=== PATIENT | female | born 1945 | race Caucasian/White ===

== ENCOUNTER 2017-06-14 09:27 | Inpatient (IN) | payer OTHER ==
[2017-06-14] MEDS ORDERED: NS 1/2 1000 ML IV 1,000 ML IV ONE ×2 (11:05→21:06)
[2017-06-14] MEDS ORDERED: ZOSYN VIAL 4.5 GM IV ONE (12:25)
[2017-06-14] MEDS ORDERED: NS 250 ML IV 250 ML IV ONE (12:25)
[2017-06-14] MEDS ORDERED: NS 100 ML IV + SPIKE MINIBAG* 100 ML IV ONE (12:26)
[2017-06-14] MEDS ORDERED: TUSSIONEX PENNKINETIC SUSP PO PRN (13:26)
[2017-06-14 13:54] LABS: ALANINE AMINOTRANSFERASE 55 Units/L (12-78); ALBUMIN 3.1 g/dL (3.4-5.0); ALKALINE PHOSPHATASE 113 Units/L (46-116); ASPARTATE AMINO TRANSFERASE 64 Units/L (15-37); BLOOD UREA NITROGEN 41 mg/dL (7-18); CARBON DIOXIDE 25.4 mmol/L (21-32); CHLORIDE 99 mmol/L (98-107); COR CA(FOR HYPOALB) 8.7 mg/dL (8.5-10.1); CREATININE 2.73 mg/dL (0.55-1.02); GLUCOSE 87 mg/dL (65-99); SODIUM 134 mmol/L (136-145); TOTAL PROTEIN 6.2 g/dL (6.4-8.2); eGFR BLACK RACES 22 (>60); eGFR NON BLACK RACES 18 (>60)
[2017-06-14 13:57] LABS: BASOPHILS % (AUTO) 0.3 % (0.2-1.0); EOSINOPHILS % (AUTO) 0.2 % (0.9-2.9); HEMATOCRIT 32.5 % (36.0-47.0); HEMOGLOBIN 11.3 g/dL (12.0-16.0); LYMPHOCYTES # (AUTO) 0.1 X10^3/uL (1.3-2.9); LYMPHOCYTES % (AUTO) 5.7 % (21.0-51.0); MEAN CORPUSCULAR HEMOGLOBIN 31.6 pg (27.0-34.0); MEAN CORPUSCULAR HGB CONC 34.8 g/dL (33.0-35.0); MEAN CORPUSCULAR VOLUME 90.8 fL (80.0-100.0); MEAN PLATELET VOLUME 10.2 fL (7.4-11.0); MONOCYTES # (AUTO) 0.1 x10^3/uL (0.3-0.8); MONOCYTES % (AUTO) 3.9 % (0.0-13.0); NEUTROPHILS # (AUTO) 1.7 x10^3/uL (2.2-4.8); NEUTROPHILS % (AUTO) 89.9 % (42.0-75.0); PLATELET COUNT 91 X10^3/uL (150.0-450.0); RED BLOOD COUNT 3.57 X10^6/uL (3.5-5.4)
[2017-06-14 13:58] LABS: WHITE BLOOD COUNT 1.9 X10^3/uL (3.6-10.0)
[2017-06-14] MEDS ORDERED: POTASSIUM CHLORIDE LIQ 20 MEQ UDC PO PRN (13:58)
[2017-06-14] MEDS ORDERED: K-LYTE EFFERVESCENT PO PRN (13:58)
[2017-06-14] MEDS ORDERED: K-DUR TAB 20 MEQ PO PRN (13:58)
[2017-06-14] MEDS ORDERED: K-RIDER 10 MEQ/NS 100 ML 10 MEQ/100 ML BAG IV PRN (13:58)
[2017-06-14 13:59] LABS: BAND NEUTROPHILS % 4 % (0-10)
[2017-06-14 14:00] LABS: PLATELET MORPHOLOGY COMMENT NORMAL (NORMAL)
--- NOTE | 2017-06-14 15:35 | RAD ---
HISTORY: Cough, shortness of breath Study: Chest AP portable Comparison: May 19, 2015 Findings: The trachea is midline. The cardiac silhouette is unremarkable. The lungs are clear without focal i nfiltrate or effusion. The bony thorax is unremarkable. IMPRESSION: 1. No acute cardiopulmonary disease. Reported By:
[2017-06-14] MEDS: ROBITUSSIN DM PO SCH ×3 (16:05→21:12)
[2017-06-14] MEDS: NS 1/2 1000 ML IV 1,000 ML IV SCH (16:05)
[2017-06-14] MEDS: ZOSYN VIAL 4.5 GM 4.5 GM in NS 100 ML IV + SPIKE MINIBAG* 100 ML IV SCH ×2 (16:05→21:11)
[2017-06-14] MEDS ORDERED: TYLENOL 325 MG TAB PO PRN (16:53)
[2017-06-14 17:10] LABS: CRYPTOSPORIDIUM PARVUM ANTIGEN NEGATIVE (NEGATIVE); GIARDIA LAMBLIA ANTIGEN NEGATIVE (NEGATIVE)
[2017-06-14] MEDS: DUONEB 0.5 MG/3 MG NEB SCH ×2 (17:46→21:00)
--- NOTE | 2017-06-14 20:18 | DR.UPDATE ---
H&P Update History and Physical Update: WAS SEEN IN OUR OFFICE THIS MORNING. A H&P WAS COMPLETED PRIOR TO ADMISSION. PATIENT HAS BEEN SEEN AND EXAMINED WITH NO CHANGES NOTED. Changes noted: NO Yes with the following:
[2017-06-15] MEDS: DUONEB 0.5 MG/3 MG NEB SCH ×7 (01:30→20:57)
[2017-06-15] MEDS: ZOSYN VIAL 4.5 GM 4.5 GM in NS 100 ML IV + SPIKE MINIBAG* 100 ML IV SCH (05:33)
[2017-06-15] MEDS: NS 1/2 1000 ML IV 1,000 ML IV SCH ×3 (06:17→17:40)
[2017-06-15 06:26] LABS: BASOPHILS % (AUTO) 0.4 % (0.2-1.0); HEMATOCRIT 29.8 % (36.0-47.0); HEMOGLOBIN 10.6 g/dL (12.0-16.0); LYMPHOCYTES # (AUTO) 0.3 X10^3/uL (1.3-2.9); MEAN CORPUSCULAR HEMOGLOBIN 32.2 pg (27.0-34.0); MEAN CORPUSCULAR HGB CONC 35.8 g/dL (33.0-35.0); MEAN CORPUSCULAR VOLUME 90.1 fL (80.0-100.0); MEAN PLATELET VOLUME 10.5 fL (7.4-11.0); MONOCYTES # (AUTO) 0.1 x10^3/uL (0.3-0.8); MONOCYTES % (AUTO) 6.8 % (0.0-13.0); NEUTROPHILS % (AUTO) 71.8 % (42.0-75.0); PLATELET COUNT 75 X10^3/uL (150.0-450.0); RED CELL DISTRIBUTION WIDTH 12.2 % (11.6-16.5)
[2017-06-15 06:33] LABS: ALANINE AMINOTRANSFERASE 46 Units/L (12-78); ALBUMIN 2.9 g/dL (3.4-5.0); ALKALINE PHOSPHATASE 104 Units/L (46-116); ASPARTATE AMINO TRANSFERASE 50 Units/L (15-37); BLOOD UREA NITROGEN 30 mg/dL (7-18); CALCIUM 8.1 mg/dL (8.5-10.1); CARBON DIOXIDE 25.2 mmol/L (21-32); CHLORIDE 105 mmol/L (98-107); GLUCOSE 89 mg/dL (65-99); SODIUM 139 mmol/L (136-145); TOTAL PROTEIN 5.8 g/dL (6.4-8.2); eGFR BLACK RACES 32 (>60); eGFR NON BLACK RACES 26 (>60)
[2017-06-15 06:34] LABS: WHITE BLOOD COUNT 1.3 X10^3/uL (3.6-10.0)
[2017-06-15 06:40] LABS: BAND NEUTROPHILS % 4 % (0-10); PLATELET MORPHOLOGY COMMENT NORMAL (NORMAL)
--- NOTE | 2017-06-15 07:22 | RAD ---
AP Chest Indication: Shortness of breath Comparison: 06/14/2017 Findings: The trachea is midline. The cardiac silhouette is unremarkable. The lungs are clear without focal i nfiltrate or effusion. The bony thorax is unremarkable. IMPRESSION: 1. No acute cardiopulmonary abnormality. Reported By:
[2017-06-15] MEDS: ZOFRAN INJ 4 MG VIAL IVP PRN ×2 (08:22→15:53)
[2017-06-15] MEDS: ROBITUSSIN DM PO SCH ×4 (08:22→20:50)
[2017-06-15] MEDS: ZOSYN VIAL 2.25 GM 2.25 GM in NS 100 ML IV + SPIKE MINIBAG* 100 ML IV SCH ×3 (08:23→20:50)
[2017-06-15] MEDS ORDERED: PHARMACY CONSULT - DOSE _____ XX SCH (11:00)
[2017-06-15] MEDS: LEVAQUIN PREMIX IV 750 MG 750 MG/150 ML BAG IV SCH (11:35)
[2017-06-15] MEDS: HEMOCYTE-PLUS PO SCH (11:35)
--- NOTE | 2017-06-15 13:28 | PCM.PROG ---
Progress Note - Progress Note for Day of Date: 06/15/17 - Subjective Subjective: IS ALERT AND ORIENTED, SITTING UP IN BED ON MORNING ROUNDS. SHE IS NOTED WITH COMPLAINTS OF SHORTNESS OF BREATH AND PRODUCTIVE COUGH. LUNGS ARE NOTED WITH SCATTERED WHEEZING AND RHONCHI ON AUSCULTATION. VITALS THIS AM ARE 98.0-84-17-98%-107/51. CBC WNL EXCEPT WBC CRITICAL LOW OF 1.3, RBC 3.30, HGB 10.6, HCT 29.8. CMP WNL EXCEPT BUN 30, CREATININE 2.00, CALCIUM 8.1, AST 50 , TOTAL PROTEIN 5.8, ALBUMIN 2.9. STOOL STUDIES ARE NEGATIVE. BLOOD CULTURES PENDING. PRELIMINARY SPUTUM CULTURE REPORTS GROWTH OF GRAM NEGATIVE RODS WITH NORMAL RICKY A DAY 1. GRAM STAIN REPORTS MANY GRAM POSITIVE COCCI. CHEST XRAY REPORT LUNGS CLEAR. WE WILL START LEVAQUIN 750MG IV Q48H AND CONTINUE ZOSYN. WE WILL RECHECK LABS AND XRAY, CHECK A PERIPHERAL BLOOD SMEAR, AND FOLLOW UP WITH PATIENT IN AM. - Past Medical Family Social History Past Med/Fam/Surg Hx: No changes since H&P Allergies: Allergies sulfamethoxazole [From Bactrim] Allergy (Verified 06/14/17 09:59) trimethoprim [From Bactrim] Allergy (Verified 06/14/17 09:59) - Review of Systems ROS: No change since H&P - Vital Signs and I&O's Vital Signs: Temperature 98.4 F Pulse Rate [Left Brachial] 82 Pulse Rate 68 Respiratory Rate 20 Blood Pressure [Right Arm] 133/64 Blood Pressure [Left Arm] 103/52 Blood Pressure 133/64 O2 Sat by Pulse Oximetry 99 Intake and Output: Intake & Output 06/13/17 06/14/17 06/15/17 06/16/17 11:59 11:59 11:59 11:59 Intake Total 2446 Balance 2446 - Physical Exam Oriented: Normal Eyes: Normal Ear: Normal Nose: Normal Throat: Normal Respiratory: Right, Left, Wheezes, Rhonchi Cardiovascular: Normal : Normal Auscultation: Bowel Sounds: Normal Palpation: Normal Tenderness: Normal Skin: Normal Musculoskeletal: Normal Psychiatric: Normal Mood Description: Calm Affect: Normal Speech Pattern: Clear, Appropriate - Laboratory and Diagnostics Result Diagrams: 06/15/17 05:33 06/15/17 05:33 Labs: 06/14/17 11:39 Blood Blood Culture - Preliminary 06/14/17 16:05 Stool Stool Culture - Preliminary 06/14/17 16:05 Stool - Final 06/14/17 11:33 Sputum - Expectorated Sputum Sputum Culture - Preliminary 06/14/17 11:33 Sputum - Expectorated Sputum - Final Laboratory WBC 1.3 X10^3/uL (3.6-10.0) L* 06/15/17 05:33 RBC 3.30 X10^6/uL (3.5-5.4) L 06/15/17 05:33 Hgb 10.6 g/dL (12.0-16.0) L 06/15/17 05:33 Hct 29.8 % (36.0-47.0) L 06/15/17 05:33 MCV 90.1 fL (80.0-100.0) 06/15/17 05:33 MCH 32.2 pg (27.0-34.0) 06/15/17 05:33 MCHC 35.8 g/dL (33.0-35.0) H 06/15/17 05:33 RDW 12.2 % (11.6-16.5) 06/15/17 05:33 Plt Count 75 X10^3/uL (150.0-450.0) L 06/15/17 05:33 Plt Count Comment Adequate (ADEQUATE) 06/15/17 05:33 MPV 10.5 fL (7.4-11.0) 06/15/17 05:33 Neut % 71.8 % (42.0-75.0) 06/15/17 05:33 Lymph % 20.0 % (21.0-51.0) L 06/15/17 05:33 [place] % 6.8 % (0.0-13.0) 06/15/17 05:33 Eos % 1.0 % (0.9-2.9) 06/15/17 05:33 Baso % 0.4 % (0.2-1.0) 06/15/17 05:33 Neut # 1.0 x10^3/uL (2.2-4.8) L 06/15/17 05:33 Lymph # 0.3 X10^3/uL (1.3-2.9) L 06/15/17 05:33 [place] # 0.1 x10^3/uL (0.3-0.8) L 06/15/17 05:33 Eos # 0.0 x10^3/uL (0.0-0.2) 06/15/17 05:33 Baso # 0.0 X10^3/uL (0.0-0.1) 06/15/17 05:33 Absolute Nucleated RBC 0.3 /100WBC 06/15/17 05:33 Total Counted 50 06/15/17 05:33 Neutrophils % (Manual) 76 % (39-76) 06/15/17 05:33 Band Neutrophils % 4 % (0-10) 06/15/17 05:33 Lymphocytes % (Manual) 16 % (13-43) 06/15/17 05:33 Monocytes % (Manual) 4 % (4-9) 06/15/17 05:33 Plt Morphology Comment Normal (NORMAL) 06/15/17 05:33 RBC Morphology Normal (NORMAL) 06/15/17 05:33 Sodium 139 mmol/L (136-145) 06/15/17 05:33 Corrected Sodium TNP 06/15/17 05:33 Potassium 4.0 mmol/L (3.5-5.1) 06/15/17 05:33 Chloride 105 mmol/L (98-107) 06/15/17 05:33 Carbon Dioxide 25.2 mmol/L (21-32) 06/15/17 05:33 BUN 30 mg/dL (7-18) H 06/15/17 05:33 Creatinine 2.00 mg/dL (0.55-1.02) H 06/15/17 05:33 Est GFR (MDRD) Af Amer 32 (>60) L 06/15/17 05:33 Est GFR (MDRD) Non-Af 26 (>60) L 06/15/17 05:33 Glucose 89 mg/dL (65-99) 06/15/17 05:33 Calcium 8.1 mg/dL (8.5-10.1) L 06/15/17 05:33 Corrected Calcium 9.0 mg/dL (8.5-10.1) 06/15/17 05:33 Total Bilirubin 0.90 mg/dL (0.2-1.0) 06/15/17 05:33 AST 50 Units/L (15-37) H 06/15/17 05:33 ALT 46 Units/L (12-78) 06/15/17 05:33 Alkaline Phosphatase 104 Units/L (46-116) 06/15/17 05:33 Total Protein 5.8 g/dL (6.4-8.2) L 06/15/17 05:33 Albumin 2.9 g/dL (3.4-5.0) L 06/15/17 05:33 Globulin 2.9 g/dL (2.5-4.5) 06/15/17 05:33 Albumin/Globulin Ratio 1.0 Ratio (1.1-2.1) L 06/15/17 05:33 Stool Description 15 g liquid/brown 06/14/17 16:05 Stl Occult Blood (IFOB) Negative (NEGATIVE) 06/14/17 16:05 Stool for White Cells No wbc's seen (None) 06/14/17 16:05 Stl C. diff Tox B Gene Negative (NEGATIVE) 06/14/17 16:05 Stl C. diff [id number] Negative (NEGATIVE) 06/14/17 16:05 Cryptosporid parvum Ag Negative (NEGATIVE) 06/14/17 16:05 E. histolytica Antigen Negative (NEGATIVE) 06/14/17 16:05 Giardia lamblia Ag Negative (NEGATIVE) 06/14/17 16:05 - Plan (1) Bronchopneumonia Status: Acute Plan: PNEUMONIA PROTOCOL, ZOSYN IV, LEVAQUIN IV, DUONEBS Q4H, CONTINUE TO MONITOR (2) Anemia Status: Acute Qualifiers: Anemia type: iron deficiency Iron deficiency anemia type: inadequate dietary iron intake Qualified Code(s): D50.8 - Other iron deficiency anemias Plan: CONTINUE HEMOCYTE PLUS, CONTINUE TO MONITOR (3) Depression Status: Chronic Qualifiers: Depression Type: major depressive disorder Major depression recurrence: recurrent Active/Remission status: currently active Major depression episode severity: unspecified Qualified Code(s): F33.9 - Major depressive disorder, recurrent, unspecified Plan: CONTINUE LEXAPRO, CONTINUE TO MONITOR
[2017-06-15] MEDS ORDERED: NS 1/2 1000 ML IV 1,000 ML IV ONE (14:50)
[2017-06-15] MEDS ORDERED: LEXAPRO ONE (20:29)
[2017-06-15] MEDS: RESTORIL CAP 15 MG PO PRN (20:50)
[2017-06-15] MEDS: LEXAPRO PO SCH (20:50)
[2017-06-15] MEDS ORDERED: ESCITALOPRAM OXALATE 10 MG PO SCH (21:00)
[2017-06-16] MEDS: DUONEB 0.5 MG/3 MG NEB SCH ×6 (00:23→20:18)
[2017-06-16] MEDS ORDERED: NS 1/2 1000 ML IV 1,000 ML IV ONE ×2 (01:59→14:44)
[2017-06-16] MEDS: NS 1/2 1000 ML IV 1,000 ML IV SCH ×4 (02:07→22:02)
[2017-06-16] MEDS: ZOSYN VIAL 2.25 GM 2.25 GM in NS 100 ML IV + SPIKE MINIBAG* 100 ML IV SCH (02:07)
[2017-06-16 04:49] LABS: ALBUMIN 2.6 g/dL (3.4-5.0); CALCIUM 8.1 mg/dL (8.5-10.1); CARBON DIOXIDE 24.6 mmol/L (21-32); COR CA(FOR HYPOALB) 9.2 mg/dL (8.5-10.1); CREATININE 1.63 mg/dL (0.55-1.02); TOTAL PROTEIN 5.2 g/dL (6.4-8.2)
[2017-06-16 05:04] LABS: BASOPHILS % (AUTO) 0.3 % (0.2-1.0); EOSINOPHILS % (AUTO) 1.2 % (0.9-2.9); HEMATOCRIT 25.7 % (36.0-47.0); HEMOGLOBIN 9.1 g/dL (12.0-16.0); LYMPHOCYTES # (AUTO) 0.6 X10^3/uL (1.3-2.9); LYMPHOCYTES % (AUTO) 41.9 % (21.0-51.0); MEAN CORPUSCULAR HEMOGLOBIN 32.2 pg (27.0-34.0); MEAN CORPUSCULAR HGB CONC 35.4 g/dL (33.0-35.0); MEAN CORPUSCULAR VOLUME 90.9 fL (80.0-100.0); MEAN PLATELET VOLUME 10.6 fL (7.4-11.0); MONOCYTES # (AUTO) 0.2 x10^3/uL (0.3-0.8); MONOCYTES % (AUTO) 10.9 % (0.0-13.0); NEUTROPHILS # (AUTO) 0.7 x10^3/uL (2.2-4.8); NEUTROPHILS % (AUTO) 45.7 % (42.0-75.0); PLATELET COUNT 63 X10^3/uL (150.0-450.0); RED BLOOD COUNT 2.83 X10^6/uL (3.5-5.4); RED CELL DISTRIBUTION WIDTH 12.7 % (11.6-16.5)
[2017-06-16 05:25] LABS: WHITE BLOOD COUNT 1.5 X10^3/uL (3.6-10.0)
[2017-06-16] MEDS: ROBITUSSIN DM PO SCH ×4 (09:39→22:01)
[2017-06-16] MEDS: HEMOCYTE-PLUS PO SCH (09:39)
--- NOTE | 2017-06-16 09:39 | PCM.PROG ---
Progress Note - Progress Note for Day of Date: 06/16/17 - Subjective Subjective: IS ALERT AND ORIENTED, SITTING UP IN BED ON MORNING ROUNDS. SHE CONTINUES WITH COMPLAINTS OF SHORTNESS OF BREATH AND PRODUCTIVE COUGH. SHE ALSO REPORTS WEAKNESS. LUNGS ARE CLEAR ON AUSCULTATION. VITALS THIS AM ARE 987.8 -95-20-99%-111/53. CBC WNL EXCEPT WBC CRITICAL LOW OF 1.5, RBC 2.83, HGB 9.1, HCT 25.7. CMP WNL EXCEPT CHLORIDE 108, BUN 22, CREATININE 1.63, GLUCOSE 115, CALCIUM 8.1,TOTAL PROTEIN 5.2, ALBUMIN 2.6. STOOL CULTURE REPORTS SCANT GROWTH OF YEAST WITH NO ENTERIC PATHOGENS ISOLATED AT DAY 2. BLOOD CULTURES PENDING. WE WILL CONTINUE WITH CURRENT PLAN OF CARE, RECHECK LABS AND XRAY, AND FOLLOW UP WITH PATIENT IN AM. - Past Medical Family Social History Past Med/Fam/Surg Hx: No changes since H&P Allergies: Allergies sulfamethoxazole [From Bactrim] Allergy (Verified 06/14/17 09:59) trimethoprim [From Bactrim] Allergy (Verified 06/14/17 09:59) - Review of Systems ROS: No change since H&P - Vital Signs and I&O's Vital Signs: Temperature 97.8 F Pulse Rate [Left Brachial] 95 Pulse Rate 100 Respiratory Rate 20 Blood Pressure [Right Arm] 111/53 Blood Pressure [Left Arm] 135/91 Blood Pressure 133/64 O2 Sat by Pulse Oximetry 99 Intake and Output: Intake & Output 06/13/17 06/14/17 06/15/17 06/16/17 11:59 11:59 11:59 11:59 Intake Total 2446 1999 Balance 2446 1999 - Physical Exam Oriented: Normal Eyes: Normal Ear: Normal Nose: Normal Throat: Normal Respiratory: Right, Left, Wheezes, Rhonchi Cardiovascular: Normal : Normal Auscultation: Bowel Sounds: Normal Palpation: Normal Tenderness: Normal Skin: Normal Musculoskeletal: Normal Psychiatric: Normal Mood Description: Calm Affect: Normal Speech Pattern: Clear, Appropriate - Laboratory and Diagnostics Result Diagrams: 06/16/17 03:45 06/16/17 03:45 Labs: 06/14/17 11:33 Sputum - Expectorated Sputum Sputum Culture - Preliminary 06/14/17 11:33 Sputum - Expectorated Sputum - Final 06/14/17 11:39 Blood Blood Culture - Preliminary 06/14/17 16:05 Stool Stool Culture - Preliminary 06/14/17 16:05 Stool - Final Laboratory WBC 1.5 X10^3/uL (3.6-10.0) L* 06/16/17 03:45 RBC 2.83 X10^6/uL (3.5-5.4) L 06/16/17 03:45 Hgb 9.1 g/dL (12.0-16.0) L 06/16/17 03:45 Hct 25.7 % (36.0-47.0) L 06/16/17 03:45 MCV 90.9 fL (80.0-100.0) 06/16/17 03:45 MCH 32.2 pg (27.0-34.0) 06/16/17 03:45 MCHC 35.4 g/dL (33.0-35.0) H 06/16/17 03:45 RDW 12.7 % (11.6-16.5) 06/16/17 03:45 Plt Count 63 X10^3/uL (150.0-450.0) L 06/16/17 03:45 Plt Count Comment Adequate (ADEQUATE) 06/15/17 05:33 MPV 10.6 fL (7.4-11.0) 06/16/17 03:45 Neut % 45.7 % (42.0-75.0) 06/16/17 03:45 Lymph % 41.9 % (21.0-51.0) 06/16/17 03:45 [place] % 10.9 % (0.0-13.0) 06/16/17 03:45 Eos % 1.2 % (0.9-2.9) 06/16/17 03:45 Baso % 0.3 % (0.2-1.0) 06/16/17 03:45 Neut # 0.7 x10^3/uL (2.2-4.8) L 06/16/17 03:45 Lymph # 0.6 X10^3/uL (1.3-2.9) L 06/16/17 03:45 [place] # 0.2 x10^3/uL (0.3-0.8) L 06/16/17 03:45 Eos # 0.0 x10^3/uL (0.0-0.2) 06/16/17 03:45 Baso # 0.0 X10^3/uL (0.0-0.1) 06/16/17 03:45 Absolute Nucleated RBC 0.1 /100WBC 06/16/17 03:45 Total Counted 50 06/15/17 05:33 Neutrophils % (Manual) 76 % (39-76) 06/15/17 05:33 Band Neutrophils % 4 % (0-10) 06/15/17 05:33 Lymphocytes % (Manual) 16 % (13-43) 06/15/17 05:33 Monocytes % (Manual) 4 % (4-9) 06/15/17 05:33 Plt Morphology Comment Normal (NORMAL) 06/15/17 05:33 RBC Morphology Normal (NORMAL) 06/15/17 05:33 Sodium 142 mmol/L (136-145) 06/16/17 03:45 Corrected Sodium 142 mmol/L (136-145) 06/16/17 03:45 Potassium 3.5 mmol/L (3.5-5.1) 06/16/17 03:45 Chloride 108 mmol/L (98-107) H 06/16/17 03:45 Carbon Dioxide 24.6 mmol/L (21-32) 06/16/17 03:45 BUN 22 mg/dL (7-18) H 06/16/17 03:45 Creatinine 1.63 mg/dL (0.55-1.02) H 06/16/17 03:45 Est GFR (MDRD) Af Amer 40 (>60) L 06/16/17 03:45 Est GFR (MDRD) Non-Af 33 (>60) L 06/16/17 03:45 Glucose 115 mg/dL (65-99) H 06/16/17 03:45 Calcium 8.1 mg/dL (8.5-10.1) L 06/16/17 03:45 Corrected Calcium 9.2 mg/dL (8.5-10.1) 06/16/17 03:45 Total Bilirubin 0.40 mg/dL (0.2-1.0) 06/16/17 03:45 AST 36 Units/L (15-37) 06/16/17 03:45 ALT 37 Units/L (12-78) 06/16/17 03:45 Alkaline Phosphatase 93 Units/L (46-116) 06/16/17 03:45 Total Protein 5.2 g/dL (6.4-8.2) L 06/16/17 03:45 Albumin 2.6 g/dL (3.4-5.0) L 06/16/17 03:45 Globulin 2.6 g/dL (2.5-4.5) 06/16/17 03:45 Albumin/Globulin Ratio 1.0 Ratio (1.1-2.1) L 06/16/17 03:45 Stool Description 15 g liquid/brown 06/14/17 16:05 Stl Occult Blood (IFOB) Negative (NEGATIVE) 06/14/17 16:05 Stool for White Cells No wbc's seen (None) 06/14/17 16:05 Stl C. diff Tox B Gene Negative (NEGATIVE) 06/14/17 16:05 Stl C. diff [id number] Negative (NEGATIVE) 06/14/17 16:05 Cryptosporid parvum Ag Negative (NEGATIVE) 06/14/17 16:05 E. histolytica Antigen Negative (NEGATIVE) 06/14/17 16:05 Giardia lamblia Ag Negative (NEGATIVE) 06/14/17 16:05 - Plan (1) Bronchopneumonia Status: Acute Plan: PNEUMONIA PROTOCOL, ZOSYN IV, LEVAQUIN IV, DUONEBS Q4H, CONTINUE TO MONITOR (2) Anemia Status: Acute Qualifiers: Anemia type: iron deficiency Iron deficiency anemia type: inadequate dietary iron intake Qualified Code(s): D50.8 - Other iron deficiency anemias Plan: CONTINUE HEMOCYTE PLUS, CONTINUE TO MONITOR (3) Depression Status: Chronic Qualifiers: Depression Type: major depressive disorder Major depression recurrence: recurrent Active/Remission status: currently active Major depression episode severity: unspecified Qualified Code(s): F33.9 - Major depressive disorder, recurrent, unspecified Plan: CONTINUE LEXAPRO, CONTINUE TO MONITOR
[2017-06-16 17:56] VITALS: BMI 30.3
[2017-06-16] MEDS ORDERED: LEXAPRO ONE (21:20)
[2017-06-16] MEDS: LEXAPRO PO SCH (21:36)
[2017-06-16] MEDS: RESTORIL CAP 15 MG PO PRN (21:36)
[2017-06-17] MEDS: DUONEB 0.5 MG/3 MG NEB SCH ×4 (00:47→12:34)
[2017-06-17] MEDS ORDERED: NS 1/2 1000 ML IV 1,000 ML IV ONE (04:32)
[2017-06-17 05:22] LABS: BASOPHILS % (AUTO) 0.4 % (0.2-1.0); EOSINOPHILS % (AUTO) 1.1 % (0.9-2.9); HEMATOCRIT 25.3 % (36.0-47.0); HEMOGLOBIN 8.8 g/dL (12.0-16.0); LYMPHOCYTES # (AUTO) 1.4 X10^3/uL (1.3-2.9); LYMPHOCYTES % (AUTO) 55.5 % (21.0-51.0); MEAN CORPUSCULAR HEMOGLOBIN 32.1 pg (27.0-34.0); MEAN CORPUSCULAR HGB CONC 34.9 g/dL (33.0-35.0); MEAN CORPUSCULAR VOLUME 91.9 fL (80.0-100.0); MEAN PLATELET VOLUME 10.9 fL (7.4-11.0); MONOCYTES # (AUTO) 0.2 x10^3/uL (0.3-0.8); NEUTROPHILS # (AUTO) 0.8 x10^3/uL (2.2-4.8); PLATELET COUNT 68 X10^3/uL (150.0-450.0); RED BLOOD COUNT 2.75 X10^6/uL (3.5-5.4); RED CELL DISTRIBUTION WIDTH 12.6 % (11.6-16.5); WHITE BLOOD COUNT 2.5 X10^3/uL (3.6-10.0)
[2017-06-17 05:33] LABS: ALANINE AMINOTRANSFERASE 36 Units/L (12-78); ALBUMIN 2.7 g/dL (3.4-5.0); ALKALINE PHOSPHATASE 95 Units/L (46-116); ASPARTATE AMINO TRANSFERASE 33 Units/L (15-37); BLOOD UREA NITROGEN 16 mg/dL (7-18); CALCIUM 8.7 mg/dL (8.5-10.1); CHLORIDE 110 mmol/L (98-107); COR CA(FOR HYPOALB) 9.7 mg/dL (8.5-10.1); CREATININE 1.41 mg/dL (0.55-1.02); GLUCOSE 94 mg/dL (65-99); SODIUM 144 mmol/L (136-145); TOTAL PROTEIN 5.2 g/dL (6.4-8.2); eGFR BLACK RACES 47 (>60); eGFR NON BLACK RACES 39 (>60)
[2017-06-17] MEDS: ROBITUSSIN DM PO SCH ×2 (09:01→14:00)
[2017-06-17] MEDS: HEMOCYTE-PLUS PO SCH (09:01)
[2017-06-17] MEDS: LEVAQUIN PREMIX IV 750 MG 750 MG/150 ML BAG IV SCH (10:15)
[2017-06-17] MEDS: NS 1/2 1000 ML IV 1,000 ML IV SCH (11:50)
[2017-06-17 12:16] VITALS: BP 120/56
--- NOTE | 2017-06-17 14:58 | RAD ---
Chest, two views Indication: Pneumonia, congestion Comparison: 06/15/2017 Findings: The heart size is normal. The lungs are clear without focal infiltrates or pleural effusion . The bony thorax is unremarkable. Impression: No acute chest process or significant change from prior. Reported By:
== END 2017-06-17 15:45 | disposition home or self-care (01) | DRG 178 ==
LOC: OBS 09:27 → MED/SURG 06-15 10:00
PROVIDERS: ADMIT Internal Medicine; ATTEND Internal Medicine
DX: J15.6 Pneumonia due to other Gram-negative bacteria (principal); F33.8 Other recurrent depressive disorders; R11.2 Nausea with vomiting, unspecified; R19.7 Diarrhea, unspecified; E86.0 Dehydration; D64.89 Other specified anemias; R53.1 Weakness
CPT/HCPCS: 36415; 71010; 71020; 80053; 82270; 85025; 85060; 87040; 87045; 87070; 87077; 87186; 87205; 87328; 87329; 87336; 87493; 87899; 94640; 94760; A4222; J1956; J2405; J2543; J7620